=== PATIENT | male | born 1990 | race Caucasian/White ===

== ENCOUNTER → 2018-10-14 | Outpatient (CLI) | payer OTHER | LOC: COL.RAD 13:08 | DX: S13.4XXA Sprain of ligaments of cervical spine, initial encounter (principal); R29.2 Abnormal reflex ==

== ENCOUNTER 2022-03-19 11:27 | Emergency (ER) | payer SELFPAY ==
[~2022-03-19] VITALS: Ht 172.7 cm; Wt 85.0 kg
[~2022-03-19 11:27] MED LIST: FLEXERIL 1010 MG/TAB PO; MOTRIN 800800 MG/TAB PO
[2022-03-19 12:01] VITALS: TEMP 98.3
[2022-03-19] MEDS ORDERED: TESSALON PERLE200 MG PO (14:31)
[2022-03-19 14:34] VITALS: BP 128/88; PULSE 79
== END 2022-03-19 14:47 | disposition home or self-care (01) ==
LOC: COL.ER 11:27
DX: R04.2 Hemoptysis (principal); Z20.822 Contact with and (suspected) exposure to COVID-19; Z28.310 Unvaccinated for COVID-19

== ENCOUNTER → 2022-07-17 | Outpatient (CLI) | payer SELFPAY ==
[~2022-07-17] MED LIST changes: +NORCO 325 MG-51 TAB PO; +TESSALON PERLE200 MG PO
== END ==
LOC: COL.RAD 14:05
DX: S62.364A Nondisplaced fracture of neck of fourth metacarpal bone, right hand, initial encounter for closed fracture (principal); S63.051A Subluxation of other carpometacarpal joint of right hand, initial encounter; X58.XXXA Exposure to other specified factors, initial encounter